=== PATIENT | male | born 1945 | race Caucasian/White ===

== ENCOUNTER → 2023-08-20 | Outpatient (CLI) | payer OTHER, SELFPAY ==
--- NOTE | 2023-08-20 12:37 | ECHOD_ITS ---
Reason For Study: Ischemic Heart Disease Procedure This was a 2D Doppler, Color Flow transthoracic echocardiogram. Exam performed in department. Left Ventricle Normal LV size. Left ventricular systolic function is normal. The left ventricular ejection fraction is 60 %. No regional wall motion abnormalities noted. Right Ventricle Normal RV size. Normal systolic function. Atria The left atrium is mildly enlarged. Normal right atrium. Mitral Valve Normal mitral valve. Tricuspid Valve Normal tricuspid valve. Mild (1+) tricuspid valve insufficiency. Pulmonary artery systolic pressure is 30 mmHg. Aortic Valve Trisinus/trileaflet aortic valve. Mild focal aortic valve calcification. Peak aortic valve gradient 27 mmHg. Mean aortic valve gradient 15 mmHg. Mild aortic stenosis. Pulmonic Valve Normal pulmonic valve. Great Vessels Normal aortic root. The pulmonary artery is normal size. Normal inferior vena cava. Pericardium/Pleural No pericardial effusion. MMode/2D Measurements & Calculations LVIDd: 5.1 cm IVSd: 1.3 cm LVOT diam: 2.0 cm LVIDs: 3.7 cm LVPWd: 1.2 cm LVOT area: 3.2 cm2 RVDd: 4.2 cm FS: 27.9 % Ao root diam: 3.6 cm LAV(MOD-bp): 89.4 ml Aortic Valve Planimetry: 1.0 cm2 ACS: 1.2 cm LAV(MOD-bp) Indexed: 40.7 ml/m2 LA dimension: 4.1 cm LAV(MOD-sp2): 72.7 ml LAV(MOD-sp4): 89.2 ml TAPSE: 2.0 cm LA A4 area: 27.0 cm2 RA A4 area: 18.6 cm2 Time Measurements MV dec time: 0.20 sec Doppler Measurements & Calculations MV E max glynn: 53.4 cm/sec Lat Peak E' Glynn: 9.5 cm/sec Med Peak E' Glynn: 5.9 cm/sec MV A max glynn: 82.4 cm/sec E/E' lat: 5.6 E/E' med: 9.1 MV E/A: 0.65 MV V2 max: 99.5 cm/sec MV P1/2t max glynn: 65.0 cm/sec Ao V2 max: 260.5 cm/sec MV max P.0 mmHg MV P1/2t: 66.6 msec Ao max P.2 mmHg MV V2 mean: 46.4 cm/sec MV dec slope: 286.1 cm/sec2 Ao V2 mean: 183.1 cm/sec MV mean P.1 mmHg Ao mean P.3 mmHg MV V2 VTI: 21.9 cm MVA(P1/2t): 3.3 cm2 Ao V2 VTI: 60.3 cm MVA(VTI): 2.7 cm2 AV (velocity ratio): 0.31 PAULINO(I,D): 0.99 cm2 PAULINO(V,D): 0.91 cm2 AI max glynn: 181.9 cm/sec LV V1 max: 74.4 cm/sec SV(LVOT): 59.6 ml AI max P.3 mmHg LV V1 max P.2 mmHg LV V1 mean P.4 mmHg AI dec slope: 217.5 cm/sec2 LV V1 mean: 55.6 cm/sec AI P1/2t: 245.0 msec LV V1 VTI: 18.8 cm PA V2 max: 137.0 cm/sec TR max glynn: 249.9 cm/sec PA max PG (full): 5.5 mmHg TR max P.0 mmHg PA V2 mean: 88.6 cm/sec PA mean PG (full): 2.5 mmHg ECHO/Echo Complete Interpretation Summary Normal LV size. Left ventricular systolic function is normal. The left ventricular ejection fraction is 60 %. Pulmonary artery systolic pressure is 30 mmHg. Mild aortic stenosis. Mean aortic valve gradient 15 mmHg. Ordering Physician: Saqib Guerrero Referring Physician: Saqib Guerrero Performed By: Joshua Kirby RCS
== END | disposition home or self-care (01) ==
LOC: CVS 12:30
PROVIDERS: Referring Provider Chiropractor; Visit Provider Chiropractor
DX: I25.9 Chronic ischemic heart disease, unspecified (principal); I35.0 Nonrheumatic aortic (valve) stenosis
CPT/HCPCS: 93306